=== PATIENT | female | born 1995 | race African-American/Black ===

== ENCOUNTER 2022-10-21 00:29 | Emergency (ER) | payer MEDICAID ==
[~2022-10-21] VITALS: Ht 167.6 cm; Wt 66.2 kg
[2022-10-21] MEDS: ALBUTEROL FS 2.5 MG/0.5 ML VIAL.NEB NEB ONE ×2 (00:45→02:46)
[2022-10-21] MEDS: IPRATROPIUM NEB FS 0.5 MG/2.5 ML AMPUL.NEB NEB ONE (00:45)
[2022-10-21] MEDS ORDERED: ALBUTEROL FS 2.5 MG/3 ML VIAL.NEB ONE (00:46)
[2022-10-21] MEDS ORDERED: IPRATROPIUM NEB FS 0.5 MG/2.5 ML AMPUL.NEB ONE (00:46)
[2022-10-21] MEDS ORDERED: ALBUTEROL FS 2.5 MG/0.5 ML VIAL.NEB ONE ×2 (00:48→02:50)
--- NOTE | 2022-10-21 00:53 | NUR ---
RECEVING BREATHING Tx
[2022-10-21] MEDS ORDERED: DEXAMETHASONE SOD PHOSPHATE 10 MG/ML VIAL ONE (01:00)
[2022-10-21] MEDS: DEXAMETHASONE SOD PHOSPHATE 4 MG/ML VIAL IM ONE (01:05)
--- NOTE | 2022-10-21 02:42 | NUR ---
WHEEZING AND SOB NOTED. SATTING 98% ON R/A. CALLED RT FOR BREATHING TX.
--- NOTE | 2022-10-21 02:56 | NUR ---
RT AT PT'S BEDSIDE FOR BREATHING TX
[2022-10-21] MEDS ORDERED: ALBUTEROL FS 2.5 MG/0.5 ML VIAL.NEB NEB ONE (03:30)
[2022-10-21] MEDS ORDERED: ALBU2.5V13 NEB ×2 (03:37→03:39)
[2022-10-21] MEDS ORDERED: PRED50TA PO (03:37)
[2022-10-21] MEDS ORDERED: AZIT250T13 PO (03:45)
--- NOTE | 2022-10-21 03:49 | NUR ---
Patient discharged to home in stable condition. Written and verbal after care instructions given. Patient verbalizes understanding of instruction.
[2022-10-21 03:52] VITALS: BP 134/72
== END 2022-10-21 03:52 | disposition home or self-care (01) ==
LOC: ER 00:47
DX: J40 Bronchitis, not specified as acute or chronic (principal); J98.01 Acute bronchospasm; Z60.2 Problems related to living alone; Z79.899 Other long term (current) drug therapy
CPT/HCPCS: 99285; 71045; 96372; 94640 ×2; J1100